=== PATIENT | male | born 1950 | race Caucasian/White ===

== ENCOUNTER 2017-07-24 12:41 | Inpatient (IN) | payer OTHER ==
[2017-07-24 13:01] VITALS: BMI 26.5
--- NOTE | 2017-07-24 13:10 | PDOC ---
History of Present Illness - General History Source: Patient Exam Limitations: No Limitations - History of Present Illness Initial Comments: CHIEF COMPLAINT: 67 y/o afebrile male with PMH HTN and alcohol abuse sent over from [facility] because of high blood pressure. HISTORY OF PRESENT ILLNESS: The patient states he went to [facility] for alcohol detox and when they took his BP they sent him here. He states he does have a headache but took his BP meds this morning. He states he last drank about 1 quart of donny conteh last night. He states he's starting to feel like he is going to have withdrawal symptoms and does have some low back pain. He denies neck pain, changes in vision/hearing, n/v/d, CP, SOB, abd pain. Vital signs on arrival are notable for BP of 199/110. REVIEW OF SYSTEMS: GENERAL/CONSTITUTIONAL: No fever/chills. No weakness. No weight change. HEAD, EYES, EARS, NOSE AND THROAT: No change in vision. No ear pain or discharge. No sore throat. CARDIOVASCULAR: No chest pain or shortness of breath. RESPIRATORY: No cough, wheezing, or hemoptysis. GASTROINTESTINAL: No abd pain, nausea, vomiting, diarrhea. GENITOURINARY: No dysuria, frequency, or change in urination. MUSCULOSKELETAL: No joint or muscle swelling or pain. No neck pain. +low back pain. SKIN: No rash or easy bruising. NEUROLOGIC: +headache. No vertigo, loss of consciousness, or loss of sensation. PHYSICAL EXAM: GENERAL: The patient is awake, alert, and fully oriented, in no acute distress. He is well appearing, UEs shaking slightly. HEAD: Normal with no signs of trauma. ENT: Pupils equal, round and reactive to light, extraocular movements intact, sclera anicteric, conjunctiva clear. Neck supple. LUNGS: Clear to auscultation bilaterally. Normal excursion. No respiratory distress or use of accessory muscles. CV: RRR, S1/S2, no MRG. Cap refill < 2 sec. ABDOMEN: Soft, non-distended, non-tender even to deep palpation, no hepatomegaly or splenomegaly, no masses. EXTREMITIES: Normal range of motion, no edema. NEUROLOGICAL: Normal speech, normal gait. CN II-XII grossly intact. PSYCH: Normal mood, normal affect. SKIN: Warm, dry, normal turgor, no rashes or lesions noted. <Citlali Joiner - Last Filed: 07/24/17 17:13> <Parhta Pride - Last Filed: 07/24/17 23:35> - General Chief Complaint: Blood Pressure Problem Stated Complaint: HTN Time Seen by Provider: 07/24/17 13:01 Past History - Past Medical History GI Disorders: Yes (GERD) HTN: Yes Other medical history: Diaz's esophagus - Psycho/Social/Smoking Cessation Hx Suicidal Ideation: No Smoking History: Former smoker Have you smoked in the past 12 months: No If you are a former smoker, when did you quit?: 5 years ago Information on smoking cessation initiated: No <Citlali Joiner - Last Filed: 07/24/17 17:13> <Partha Pride - Last Filed: 07/24/17 23:35> - Past Medical History Allergies/Adverse Reactions: Allergies Allergy/AdvReac Type Severity Reaction Status Date / Time No Known Allergies Allergy Verified 07/24/17 12:50 Home Medications: Ambulatory Orders Valsartan 0 mg PO DAILY 07/24/17 *Physical Exam - Vital Signs Last Vital Signs Temp Pulse Resp BP Pulse Ox 97.9 F 82 18 199/110 96 07/24/17 12:52 07/24/17 12:52 07/24/17 12:52 07/24/17 12:52 07/24/17 12:52 <Citlali Joiner - Last Filed: 07/24/17 17:13> - Vital Signs Last Vital Signs Temp Pulse Resp BP Pulse Ox 98.0 F 61 18 176/114 96 07/24/17 17:50 07/24/17 21:13 07/24/17 21:13 07/24/17 22:42 07/24/17 21:13 <Partha Pride - Last Filed: 07/24/17 23:35> ED Treatment Course - LABORATORY CBC & Chemistry Diagram: 07/24/17 13:39 07/24/17 13:39 <Citlali Joiner - Last Filed: 07/24/17 17:13> - LABORATORY CBC & Chemistry Diagram: 07/24/17 13:39 07/24/17 13:39 - ADDITIONAL ORDERS Additional order review: Laboratory Results 07/24/17 13:39 Sodium 141 Potassium 3.4 L Chloride 102 Carbon Dioxide 32 Anion Gap 7 L BUN 10 Creatinine 0.9 Creat Clearance w eGFR > 60 Random Glucose 121 H Calcium 9.9 Total Bilirubin 0.8 AST 81 H ALT 61 Alkaline Phosphatase 57 Creatine Kinase 125 Troponin I < 0.02 Total Protein 7.3 Albumin 4.1 07/24/17 13:39 RBC 4.25 MCV 102.5 H MCHC 34.5 RDW 12.7 MPV 7.2 L Neutrophils % 80.0 Lymphocytes % 10.4 Monocytes % 8.4 Eosinophils % 0.8 Basophils % 0.4 - RADIOLOGY Radiology Studies Ordered: Category Date Time Status CHEST PA & LAT [RAD] Stat Radiology 07/24/17 22:50 Ordered - Medications Given in the ED: ED Medications Discontinued Medications Generic Name Dose Route Start Last Admin Trade Name Freq PRN Reason Stop Dose Admin Acetaminophen 1,000 mg 07/24/17 13:17 07/24/17 13:26 Tylenol - PO 07/24/17 13:18 1,000 mg ONCE ONE Administration Chlordiazepoxide HCl 5 mg 07/24/17 22:40 07/24/17 22:46 Librium - PO 07/24/17 22:41 5 mg ONCE ONE Administration Clonidine 0.1 mg 07/24/17 18:56 07/24/17 19:15 Catapres - PO 07/24/17 18:57 0.1 mg ONCE ONE Administration Enalaprilat 2.5 mg 07/24/17 20:16 07/24/17 20:26 Vasotec Injection - IVPB 07/24/17 20:17 2.5 mg ONCE ONE Administration Labetalol HCl 10 mg 07/24/17 21:13 07/24/17 21:52 Normodyne Injection - IVPUSH 07/24/17 21:14 10 mg ONCE ONE Administration Lorazepam 1 mg 07/24/17 13:17 07/24/17 13:26 Ativan - PO 07/24/17 13:18 1 mg ONCE ONE Administration Lorazepam 1 mg 07/24/17 17:49 07/24/17 17:58 Ativan - PO 07/24/17 17:50 1 mg ONCE ONE Administration Valsartan 40 mg 07/24/17 17:49 07/24/17 17:58 Diovan - PO 07/24/17 17:50 40 mg ONCE ONE Administration <Partha Pride - Last Filed: 07/24/17 23:35> Medical Decision Making - Medical Decision Making A/P: 67 y/o male with HTN, headache and possible start of alcohol withdrawals. Plan is as follows: 1. EKG 2. Labs 3. Pain meds 4. Ativan 5. Head CT The patient only wants tylenol for pain. Head CT IMPRESSION: No gross acute intracranial pathology is identified. The patient's blood pressure has come down and he admits his headache has improved after tylenol. Suspect elevated BP was secondary to withdrawal. Will discharged back to [facility] for detox. Pt instructed to continue taking his BP meds as prescribed and return to the ER with any worsening or concerning symptoms. The patient verbalizes understanding of all instructions, has no further questions and is awaiting discharge. <Citlali Joiner - Last Filed: 07/24/17 17:13> *DC/Admit/Observation/Transfer <Citlali Joiner - Last Filed: 07/24/17 17:13> - Discharge Dispostion Admit: Yes <Partha Pride - Last Filed: 07/24/17 23:35> Diagnosis at time of Disposition: Alcohol abuse High blood pressure Qualifiers: Hypertension type: unspecified Qualified Code(s): I10 - Essential (primary) hypertension Headache Qualifiers: Headache type: unspecified Headache chronicity pattern: unspecified pattern Intractability: not intractable Qualified Code(s): R51 - Headache - Discharge Dispostion Condition at time of disposition: Fair - Referrals Referrals: STAFF,NOT ON [Primary Care Provider] - - Patient Instructions Additional Instructions: Discharge Instructions: -The Cat Scan of your head was negative -Your blood pressure may have been elevated because of alcohol withdrawal -Please continue taking your blood pressure medication as prescribed -Return to the ER with any worsening or concerning symptoms.
[2017-07-24] MEDS ORDERED: LORazepam 1 MG TABLET PO ONE ×2 (13:17→17:49)
[2017-07-24] MEDS ORDERED: ACETAMINOPHEN 500 MG TABLET (FP) PO ONE (13:17)
[2017-07-24] MEDS ORDERED: ACETAMINOPHEN 325 MG TABLET (FP) ONE (13:22)
[2017-07-24] MEDS ORDERED: LORazepam 0.5 MG TABLET ONE ×2 (13:22→17:52)
[2017-07-24 14:28] LABS: BASOPHIL 0.4 % (0-2.0); EOSINOPHIL 0.8 % (0-4.5); MCH 35.4 pg (25.7-33.7); MCHC 34.5 g/dl (32.0-35.9); MEAN CELL VOLUME 102.5 fl (80-96); MEAN PLT VOLUME 7.2 fl (7.5-11.1); PLATELET COUNT 192 K/MM3 (134-434); RDW 12.7 % (11.9-15.9); WHITE BLOOD COUNT 7.5 K/mm3 (4.0-10.0)
[2017-07-24 14:53] LABS: ALBUMIN 4.1 g/dl (3.4-5.0); ANION GAP 7 (8-16); BILIRUBIN,TOTAL 0.8 mg/dL (0.2-1.0); CALCIUM 9.9 mg/dL (8.5-10.1); CO2 32 mmol/L (21-32); CPK 125 IU/L (39-308); CREATININE 0.9 mg/dL (0.7-1.3); GLUCOSE,RANDOM 121 mg/dL (74-106); SGOT/AST 81 U/L (15-37); SGPT/ALT 61 U/L (12-78)
[2017-07-24 14:56] LABS: ALK PHOS 57 U/L (45-117); TOT PROT 7.3 g/dl (6.4-8.2); TROPONIN I < 0.02 ng/ml (0.00-0.05)
[2017-07-24] MEDS ORDERED: VALSARTAN 40 MG TABLET (FP) PO ONE (17:49)
[2017-07-24] MEDS ORDERED: VALSARTAN 80 MG TABLET (UD) ONE (17:52)
[2017-07-24] MEDS ORDERED: cloNIDine HCL 0.1 MG TABLET PO ONE ×2 (18:56→23:46)
[2017-07-24] MEDS ORDERED: cloNIDine HCL 0.1 MG TABLET ONE ×2 (19:08→23:51)
[2017-07-24] MEDS ORDERED: ENALAPRILAT DIHYDRATE 2.5 MG/2 ML VIAL IVPB ONE ×2 (20:16→20:18)
[2017-07-24] MEDS ORDERED: LABETALOL HCL 5 MG/1 ML (100MG/20 ML VIAL) IVPUSH ONE (21:13)
[2017-07-24] MEDS ORDERED: LABETALOL HCL 5 MG/1 ML (200MG/40ML VIAL) IVPB ONE (21:44)
[2017-07-24] MEDS ORDERED: chlordiazePOXIDE 5 MG CAPSULE PO ONE (22:40)
[2017-07-24] MEDS ORDERED: chlordiazePOXIDE 5 MG CAPSULE ONE (22:43)
[2017-07-24] MEDS ORDERED: FOLIC ACID INJECTION - 1 MG, THIAMINE HCL 100 MG, MULTIVIT INJECTION ADULT 10 ML in SOD... IVPB ONE (23:34)
[2017-07-24] MEDS ORDERED: POTASSIUM CHLORIDE TABS 20 MEQ TABLET.ER (FP) PO ONE ×2 (23:34→23:51)
[2017-07-25 00:59] LABS: TROPONIN I 0.02 ng/ml (0.00-0.05)
--- NOTE | 2017-07-25 05:52 | HP ---
CHIEF COMPLAINT: Elevated BP PCP: HISTORY OF PRESENT ILLNESS: This is a 67 y/o male with a past medical history of HTN, Chronic Alcohol Abuse. Who arrived from [facility] for elevated BP ( 212/128) . Patient is non- compliant with his meds, secondary to his alcohol abuse. Patient admits last drink, 2 days ago. Patient denies fever, chills, cough, SOB CP, AP, N/V/D, constipation, dysuria. ER course was notable for: (1) BP on arrival 199/110 (2) EKG- SR w/ PVCs, Anterior Ischemia, Prolonged QT (3) Recent Travel: None PAST MEDICAL HISTORY: See HPI PAST SURGICAL HISTORY: Denies Social History: Smoking: Denies Alcohol: 1 pint [place] Estes daily Drugs: Denies Family History: Father: Liver Ca Allergies No Known Allergies Allergy (Verified 07/24/17 12:50) HOME MEDICATIONS: Home Medications Medication Instructions Recorded Valsartan 0 mg PO DAILY 07/24/17 REVIEW OF SYSTEMS CONSTITUTIONAL: Absent: fever, chills, diaphoresis, generalized weakness, malaise, loss of appetite, weight change HEENT: Absent: rhinorrhea, nasal congestion, throat pain, throat swelling, difficulty swallowing, mouth swelling, ear pain, eye pain, visual changes CARDIOVASCULAR: Absent: chest pain, syncope, palpitations, irregular heart rate, lightheadedness , peripheral edema RESPIRATORY: Absent: cough, shortness of breath, dyspnea with exertion, orthopnea, wheezing, stridor, hemoptysis GASTROINTESTINAL: Absent: abdominal pain, abdominal distension, nausea, vomiting, diarrhea, constipation, melena, hematochezia GENITOURINARY: Absent: dysuria, frequency, urgency, hesitancy, hematuria, flank pain, genital pain MUSCULOSKELETAL: Absent: myalgia, arthralgia, joint swelling, back pain, neck pain SKIN: Absent: rash, itching, pallor HEMATOLOGIC/IMMUNOLOGIC: Absent: easy bleeding, easy bruising, lymphadenopathy, frequent infections ENDOCRINE: Absent: unexplained weight gain, unexplained weight loss, heat intolerance, cold intolerance NEUROLOGIC: headache Absent: headache, focal weakness or paresthesias, dizziness, unsteady gait, seizure, mental status changes, bladder or bowel incontinence PSYCHIATRIC: Absent: anxiety, depression, suicidal or homicidal ideation, hallucinations. PHYSICAL EXAMINATION Vital Signs - 24 hr 07/25/17 07/25/17 07/25/17 01:52 03:07 03:22 Temperature 97.8 F 97.8 F Pulse Rate 54 L 54 L Pulse Rate [ 60 Apical] Respiratory 16 20 20 Rate Blood Pressure 161/103 161/103 Blood Pressure 170/90 [Right Arm] O2 Sat by Pulse 96 Oximetry (%) GENERAL: Awake, alert, and fully oriented, in no acute distress. HEAD: Normal with no signs of trauma. EYES: Pupils equal, round and reactive to light, extraocular movements intact, sclera anicteric, conjunctiva clear. No lid lag. EARS, NOSE, THROAT: Ears normal, nares patent, oropharynx clear without exudates. Dry mucous membranes. NECK: Normal range of motion, supple without lymphadenopathy, JVD, or masses. LUNGS: Breath sounds equal, clear to auscultation bilaterally. No wheezes, and no crackles. No accessory muscle use. HEART: Regular rate and rhythm, normal S1 and S2 without murmur, rub or gallop. ABDOMEN: Soft, nontender, not distended, normoactive bowel sounds, no guarding, no rebound, no masses. + hepatomegaly, splenomegaly. MUSCULOSKELETAL: Normal range of motion at all joints. No bony deformities or tenderness. No CVA tenderness. UPPER EXTREMITIES: 2+ pulses, warm, well-perfused. No cyanosis. No clubbing. No peripheral edema. LOWER EXTREMITIES: 2+ pulses, warm, well-perfused. No calf tenderness. No peripheral edema. NEUROLOGICAL: Cranial nerves II-XII intact. Normal speech. Gait not observed. PSYCHIATRIC: Cooperative. Good eye contact. Appropriate mood and affect. SKIN: Warm, dry, normal turgor, no rashes or lesions noted, normal capillary refill. Laboratory Results - last 24 hr 07/25/17 00:15 Creatine Kinase 148 Troponin I 0.02 ASSESSMENT/PLAN: This is a 67 y/o male with a PMHx of HTN, Chronic Alcohol Abuse. Placed in Tele Observation for further evaluation of thier medical condition. Problem List - Problem (1) Hypertensive urgency Assessment/Plan: - Uncontrolled - Continue cardiac monitoring - EKG- SR with PVCs, Anterior Ischemia, prolonged QT - Clonidine, Diovan, Labetolol, Vaseotec given in ED - BP- 190/110~ 160/103 - Monitor CBC, BMP - Chest Xray-pending Code(s): I16.0 - HYPERTENSIVE URGENCY (2) Alcohol abuse Assessment/Plan: - Will need Detox Protocol, pt has visible tremors - Given Banana Bag in ED - Appreciate Detox Consult - Fall precautions - Seizure Precautions - Continue Thiamine, Folic Acid, MVI - Monitor DTs - Monitor vitals Code(s): F10.10 - ALCOHOL ABUSE, UNCOMPLICATED (3) DVT prophylaxis Assessment/Plan: - OOB - SCDs Code(s): [id number] - Visit type - Emergency Visit Emergency Visit: Yes ED Registration Date: 07/24/17 Care time: The patient presented to the Emergency Department on the above date and was hospitalized for further evaluation of their emergent condition. - New Patient This patient is new to me today: Yes Date on this admission: 07/25/17 - Critical Care Critical Care patient: No
[2017-07-25] MEDS: chlordiazePOXIDE HCL 25 MG CAPSULE PO SCH ×4 (06:31→22:52)
[2017-07-25 08:10] LABS: BASOPHIL 0.5 % (0-2.0); EOSINOPHIL 3.7 % (0-4.5); MCH 36.2 pg (25.7-33.7); MCHC 35.6 g/dl (32.0-35.9); MEAN CELL VOLUME 101.8 fl (80-96); MEAN PLT VOLUME 7.7 fl (7.5-11.1); NEUTROPHILS 67.4 % (42.8-82.8); PLATELET COUNT 156 K/MM3 (134-434); RDW 12.7 % (11.9-15.9); WHITE BLOOD COUNT 6.1 K/mm3 (4.0-10.0)
[2017-07-25 08:39] LABS: ANION GAP 8 (8-16); CALCIUM 8.8 mg/dL (8.5-10.1); CO2 32 mmol/L (21-32); CREATININE 0.9 mg/dL (0.7-1.3); GLUCOSE,RANDOM 127 mg/dL (74-106); MAGNESIUM 1.8 mg/dL (1.8-2.4); PHOSPHOROUS 3.2 mg/dL (2.5-4.9)
[2017-07-25] MEDS ORDERED: PNEUMOC 13-VAL CONJ-DIP CRM/PF 0.5 ML DISP.SYRIN IM ONE (09:00)
[2017-07-25 10:02] LABS: TROPONIN I 0.02 ng/ml (0.00-0.05)
--- NOTE | 2017-07-25 10:03 | CONSULT ---
Consult Detox [facility] Reason for Current Admission/Consult: Alcohol detox Referred by:: Amanda Jones NP - History History of Present Illness: 67 y/o man with a long hx. of alcoholism was sent from [facility] to [facility] because of Hypertensive crisis. - History Source History Provided By: Patient, Medical Record - Alcohol/Substance Use Hx Alcohol Use: Yes Assessment Plan - Diagnosis (1) Hypertensive urgency Status: Acute (2) Alcohol dependence with uncomplicated withdrawal Status: Acute - Medication Detox Regimen/Protocol: Librium
[2017-07-25] MEDS: THIAMINE HCL 100 MG TABLET (FP) PO SCH (10:11)
[2017-07-25] MEDS: FOLIC ACID 1 MG TABLET (FP) PO SCH (10:11)
[2017-07-25] MEDS: VALSARTAN 40 MG TABLET (FP) PO SCH (10:11)
[2017-07-25] MEDS: MULTIVITAMINS (DAILY MVI) TABLET (FP) PO SCH (10:11)
[2017-07-25] MEDS: POTASSIUM CHLORIDE TABS 20 MEQ TABLET.ER (FP) PO SCH ×2 (10:49→16:01)
--- NOTE | 2017-07-25 10:57 | EKG ---
Test Reason : Blood Pressure : / mmHG Vent. Rate : 083 BPM Atrial Rate : 083 BPM P-R Int : 178 ms QRS Dur : 096 ms QT Int : 430 ms P-R-T Axes : 050 -02 029 degrees QTc Int : 505 ms SINUS RHYTHM WITH OCCASIONAL PREMATURE VENTRICULAR COMPLEXES PROLONGED QT ABNORMAL ECG NO PREVIOUS ECGS AVAILABLE Confirmed by JEFERSON COYLE, MAC ([id number]) on 07/25/2017 10:56:52 AM Referred By: Confirmed By:MAC GOVEA MD
--- NOTE | 2017-07-25 12:05 | PN ---
Physical Exam: SUBJECTIVE: Patient seen and examined at bedside. States feels shaky and thirsty. Was sober for 25 years, started drinking again 3 years ago. OBJECTIVE: Vital Signs Period Temp Pulse Resp BP Sys/Choudhary Pulse Ox Last 24 Hr 97.8 F-98.7 F 48-65 16-20 135-170/74-103 96-96 GENERAL/NEURO: A&Ox3; bilateral hand tremors, mild asterixis HEAD: Normal with no signs of trauma. EYES: PERRL, extraocular movements intact, sclera injected appearance, conjunctiva clear. No ptosis. LUNGS: Breath sounds equal, clear to auscultation bilaterally, no wheezes, no crackles, no accessory muscle use. HEART: Regular rate and rhythm, S1, S2 without murmur, rub or gallop. ABDOMEN: Soft, distended, tympanic; normoactive bowel sounds, no guarding, no rebound EXTREMITIES: 2+ pulses, warm, well-perfused, no edema. NEUROLOGICAL: Cranial nerves II through XII grossly intact. Normal speech, gait not observed. Laboratory Results - last 24 hr 07/25/17 07/25/17 07/25/17 00:15 05:50 05:50 WBC 6.1 RBC 3.63 L Hgb 13.1 D Hct 37.0 D MCV 101.8 H MCH 36.2 H MCHC 35.6 RDW 12.7 Plt Count 156 MPV 7.7 Neutrophils % 67.4 Lymphocytes % 17.6 D Monocytes % 10.8 H Eosinophils % 3.7 D Basophils % 0.5 Sodium 140 Potassium 3.3 L Chloride 100 Carbon Dioxide 32 Anion Gap 8 BUN 10 Creatinine 0.9 Random Glucose 127 H Calcium 8.8 Phosphorus 3.2 Magnesium 1.8 Creatine Kinase 148 Troponin I 0.02 07/25/17 09:20 WBC RBC Hgb Hct MCV MCH MCHC RDW Plt Count MPV Neutrophils % Lymphocytes % Monocytes % Eosinophils % Basophils % Sodium Potassium Chloride Carbon Dioxide Anion Gap BUN Creatinine Random Glucose Calcium Phosphorus Magnesium Creatine Kinase 116 Troponin I 0.02 Active Medications Generic Name Dose Route Start Last Admin Trade Name Freq PRN Reason Stop Dose Admin Chlordiazepoxide HCl 25 mg 07/25/17 04:12 Librium - PO 07/28/17 04:11 Q4H PRN WITHDRAWAL(CONT SUBST) Chlordiazepoxide HCl 50 mg 07/25/17 05:00 07/25/17 10:49 Librium - PO 07/25/17 23:01 50 mg [id number] DEVIN Administration Chlordiazepoxide HCl 25 mg 07/26/17 05:00 Librium - PO 07/26/17 23:01 [id number] DEVIN Chlordiazepoxide HCl 15 mg 07/27/17 05:00 Librium - PO 07/27/17 23:01 [id number] DEVIN Folic Acid 1 mg 07/25/17 10:00 07/25/17 10:11 Folic Acid - PO 1 mg DAILY DEVIN Administration Multivitamins/Minerals/Vitamin C 1 tab 07/25/17 10:00 07/25/17 10:11 Tab-A-Vit - PO 1 tab DAILY DEVIN Administration Potassium Chloride 40 meq 07/25/17 10:15 07/25/17 10:49 K-Dur - PO 07/25/17 16:16 40 meq Q6H DEVIN Administration Thiamine HCl 100 mg 07/25/17 10:00 07/25/17 10:11 Vitamin B1 - PO 100 mg DAILY DEVIN Administration Valsartan 40 mg 07/25/17 10:00 07/25/17 10:11 Diovan - PO 40 mg DAILY DEVIN Administration ASSESSMENT/PLAN 67 year-old male with a PMH of HTN and ETOH abuse. Admitted for hypertensive urgency. Hypertensive urgency --on presentation to [facility], BP reportedly 212/128, was 199/110 in ED --BP now 135/74 --continus valsartan, renal function stable Acute alcohol withdrawal --tremulous, asterixis --continue librium taper, thiamine, folic acid Hypokalemia --repleted F/E/N Fluids: D51/2@83mL/hr Electrolytes: replete as indicated Nutrition: low sodium DVT prophylaxis: subq heparin, oob, ambulation Dispo: continues to require inpatient care. If normotensive for 24 hours, can discharge to [facility] to continue detox. Full code. Visit type - Emergency Visit Emergency Visit: Yes ED Registration Date: 07/24/17 Care time: The patient presented to the Emergency Department on the above date and was hospitalized for further evaluation of their emergent condition. - New Patient This patient is new to me today: Yes Date on this admission: 07/25/17 - Critical Care Critical Care patient: No
[2017-07-25] MEDS ORDERED: DEXTROSE 5%-0.45% SALINE 1,000 ML IV SCH (12:15)
[2017-07-25] MEDS: HEPARIN NA (PORCINE) 5,000 UNITS/ML 1ML VIAL SQ SCH ×2 (14:31→22:45)
[2017-07-25] MEDS: LIDOCAINE 5% TOPICAL PATCH TP SCH (19:44)
[2017-07-25] MEDS: chlordiazePOXIDE HCL 25 MG CAPSULE PO PRN (19:45)
[2017-07-25] MEDS: LIDOCAINE PATCH REMOVAL MC SCH (21:56)
[2017-07-26] MEDS: chlordiazePOXIDE HCL 25 MG CAPSULE PO SCH ×4 (05:26→22:32)
[2017-07-26] MEDS: HEPARIN NA (PORCINE) 5,000 UNITS/ML 1ML VIAL SQ SCH ×3 (05:27→22:39)
[2017-07-26 07:52] LABS: BASOPHIL 0.4 % (0-2.0); EOSINOPHIL 4.3 % (0-4.5); MCHC 35.3 g/dl (32.0-35.9); MEAN CELL VOLUME 101.8 fl (80-96); MEAN PLT VOLUME 7.9 fl (7.5-11.1); NEUTROPHILS 67.2 % (42.8-82.8); PLATELET COUNT 142 K/MM3 (134-434); RDW 12.7 % (11.9-15.9)
[2017-07-26 08:22] LABS: ALBUMIN 3.4 g/dl (3.4-5.0); ALK PHOS 47 U/L (45-117); ANION GAP 8 (8-16); BILIRUBIN,TOTAL 0.8 mg/dL (0.2-1.0); CALCIUM 8.1 mg/dL (8.5-10.1); CO2 31 mmol/L (21-32); GLUCOSE,RANDOM 126 mg/dL (74-106); MAGNESIUM 1.6 mg/dL (1.8-2.4); SGOT/AST 39 U/L (15-37); SGPT/ALT 41 U/L (12-78)
[2017-07-26] MEDS: FOLIC ACID 1 MG TABLET (FP) PO SCH (09:35)
[2017-07-26] MEDS: MULTIVITAMINS (DAILY MVI) TABLET (FP) PO SCH (09:35)
[2017-07-26] MEDS: VALSARTAN 40 MG TABLET (FP) PO SCH (09:35)
[2017-07-26] MEDS: THIAMINE HCL 100 MG TABLET (FP) PO SCH (09:35)
[2017-07-26] MEDS: LIDOCAINE 5% TOPICAL PATCH TP SCH (09:39)
[2017-07-26] MEDS ORDERED: MAGNESIUM SULF 50% (8.12 MEQ/2 ML-1 GM VIAL) IVPB ONE (11:44)
[2017-07-26] MEDS ORDERED: POTASSIUM CHLORIDE TABS 20 MEQ TABLET.ER (FP) PO SCH (11:45)
[2017-07-26] MEDS: POTASSIUM CHLORIDE TABS 20 MEQ TABLET.ER (FP) PO SCH ×3 (13:40→22:32)
[2017-07-26] MEDS ORDERED: MAGNESIUM OXIDE 400 MG TABLET (FP) PO ONE (13:40)
[2017-07-26] MEDS: chlordiazePOXIDE HCL 25 MG CAPSULE PO PRN (13:44)
[2017-07-26] MEDS ORDERED: hydrALAZINE HCL 10 MG TABLET PO SCH (14:00)
--- NOTE | 2017-07-26 14:16 | PN ---
Physical Exam: SUBJECTIVE: Patient seen and examined at bedside. States he legs feels shaky and he feels anxious. OBJECTIVE: Vital Signs Period Temp Pulse Resp BP Sys/Choudhary Pulse Ox Last 24 Hr 98.1 F-99.3 F 59-63 18-20 132-171/73-103 96-97 GENERAL/NEURO: A&Ox3; mild bilateral hand tremors, mild asterixis HEAD: Normal with no signs of trauma. EYES: PERRL, extraocular movements intact, sclera injected appearance, conjunctiva clear. No ptosis. LUNGS: Breath sounds equal, clear to auscultation bilaterally, no wheezes, no crackles, no accessory muscle use. HEART: Regular rate and rhythm, S1, S2 without murmur, rub or gallop. ABDOMEN: Soft, distended, tympanic; normoactive bowel sounds, no guarding, no rebound EXTREMITIES: 2+ pulses, warm, well-perfused, no edema. NEUROLOGICAL: Cranial nerves II through XII grossly intact. Normal speech, gait not observed. Laboratory Results - last 24 hr 07/26/17 07/26/17 05:45 05:45 WBC 6.0 RBC 3.67 L Hgb 13.2 Hct 37.3 MCV 101.8 H MCH 36.0 H MCHC 35.3 RDW 12.7 Plt Count 142 MPV 7.9 Neutrophils % 67.2 Lymphocytes % 17.1 Monocytes % 11.0 H Eosinophils % 4.3 Basophils % 0.4 Sodium 139 Potassium 3.0 L Chloride 100 Carbon Dioxide 31 Anion Gap 8 BUN 9 Creatinine 1.0 Creat Clearance w eGFR > 60 Random Glucose 126 H Calcium 8.1 L Magnesium 1.6 L Total Bilirubin 0.8 AST 39 H D ALT 41 D Alkaline Phosphatase 47 Total Protein 6.0 L Albumin 3.4 Active Medications Generic Name Dose Route Start Last Admin Trade Name Freq PRN Reason Stop Dose Admin Chlordiazepoxide HCl 25 mg 07/25/17 04:12 07/26/17 13:44 Librium - PO 07/28/17 04:11 25 mg Q4H PRN Administration WITHDRAWAL(CONT SUBST) Chlordiazepoxide HCl 25 mg 07/26/17 05:00 07/26/17 12:25 Librium - PO 07/26/17 23:01 25 mg [id number] DEVIN Administration Chlordiazepoxide HCl 15 mg 07/27/17 05:00 Librium - PO 07/27/17 23:01 [id number] DEVIN Folic Acid 1 mg 07/25/17 10:00 07/26/17 09:35 Folic Acid - PO 1 mg DAILY DEVIN Administration Heparin Sodium (Porcine) 5,000 unit 07/25/17 14:00 07/26/17 13:41 Heparin - SQ 5,000 unit TID DEVIN Administration Hydralazine HCl 10 mg 07/26/17 14:00 07/26/17 13:40 Apresoline - PO 10 mg TID DEVIN Administration Lidocaine 1 patch 07/25/17 19:00 07/26/17 09:39 Lidoderm Patch - TP 1 patch DAILY DEVIN Administration Magnesium Oxide 800 mg 07/26/17 13:40 Mag-Ox - PO 07/26/17 13:41 ONCE ONE Miscellaneous 1 each 07/25/17 22:00 07/25/17 21:56 Lidoderm Patch Removal MC Not Given DAILY@2200 [facility] Multivitamins/Minerals/Vitamin C 1 tab 07/25/17 10:00 07/26/17 09:35 Tab-A-Vit - PO 1 tab DAILY DEVIN Administration Potassium Chloride 40 meq 07/26/17 11:45 07/26/17 13:40 K-Dur - PO 07/26/17 23:46 40 meq Q6H DEVIN Administration Thiamine HCl 100 mg 07/25/17 10:00 07/26/17 09:35 Vitamin B1 - PO 100 mg DAILY DEVIN Administration Valsartan 40 mg 07/25/17 10:00 07/26/17 09:35 Diovan - PO 40 mg DAILY DEVIN Administration ASSESSMENT/PLAN 67 year-old male with a PMH of HTN and ETOH abuse. Admitted for hypertensive urgency. Sees PCP for BP meds. Cannot recall ever having echo. Last stress "years ago." Hypertensive urgency Bradycardia --on presentation to [facility], BP reportedly 212/128, was 199/110 in ED --BP still elevated 171/100, bradycardic to 48 --add hydralazine to valsartan --echo done, pending read --lipid profile pending Acute alcohol withdrawal --tremulous, anxious --give PRN dose librium --continue librium taper, thiamine, folic acid Hypokalemia --repleted Hypomagnesemia --repleted F/E/N Fluids: lost IV access and patient refusing reinsertion; will monitor PO intake Electrolytes: replete as indicated Nutrition: low sodium DVT prophylaxis: subq heparin, oob, ambulation Dispo: continues to require inpatient care. Full code. Visit type - Emergency Visit Emergency Visit: Yes ED Registration Date: 07/25/17 Care time: The patient presented to the Emergency Department on the above date and was hospitalized for further evaluation of their emergent condition. - New Patient This patient is new to me today: No - Critical Care Critical Care patient: No
[2017-07-26] MEDS ORDERED: amLODIPine BESYLATE 5 MG TABLET (FP) PO ONE (15:45)
--- NOTE | 2017-07-26 15:45 | CON.CARD ---
Cardiology Consult (text) - Consultation Consultation Note: CC: hypertensive urgency 67 yo with h/o HTN, Chronic Alcohol Abuse, GERD who presents with hypertensive urgency noted when he arrived at [facility] for detox. bp 212/128 per ambulance record. given clonidine, IV labetolol, IV enalapril, PO diovan in ER. patient has been on long standing dose of valsartan 80 mg/day. Denies prior episode of htn urgency. denies prior need for cardiac evaluation. denies recent pain, trauma, nsaid use. denies non-adherence to medications, although per report may not have been taking his meds. + frequent falls when drinking, but denies recent trauma to head. head ct here negative for acute pathology. Patient denies fever, chills, sweats, cough, AP, N/V/D, constipation, congestion, rash. pmhx/pshx: per hpi social hx; 1 pint [place] daily, former smoker. family hx: Liver Ca ros: per hpi Ambulatory Orders Valsartan 80 mg PO DAILY 07/24/17 Current Medications Chlordiazepoxide HCl (Librium -) 25 mg PO Q4H PRN PRN Reason: WITHDRAWAL(CONT SUBST) Stop: 07/28/17 04:11 Last Admin: 07/26/17 13:44 Dose: 25 mg Chlordiazepoxide HCl (Librium -) 25 mg PO [id number] [facility] Stop: 07/26/17 23:01 Last Admin: 07/26/17 12:25 Dose: 25 mg Chlordiazepoxide HCl (Librium -) 15 mg PO [id number] [facility] Stop: 07/27/17 23:01 Folic Acid (Folic Acid -) 1 mg PO DAILY [facility] Last Admin: 07/26/17 09:35 Dose: 1 mg Heparin Sodium (Porcine) (Heparin -) 5,000 unit SQ TID [facility] Last Admin: 07/26/17 13:41 Dose: 5,000 unit Hydralazine HCl (Apresoline -) 10 mg PO TID [facility] Last Admin: 07/26/17 13:40 Dose: 10 mg Lidocaine (Lidoderm Patch -) 1 patch TP DAILY [facility] Last Admin: 07/26/17 09:39 Dose: 1 patch Miscellaneous (Lidoderm Patch Removal) 1 each MC DAILY@2200 [facility] Last Admin: 07/25/17 21:56 Dose: Not Given Multivitamins/Minerals/Vitamin C (Tab-A-Vit -) 1 tab PO DAILY [facility] Last Admin: 07/26/17 09:35 Dose: 1 tab Potassium Chloride (K-Dur -) 40 meq PO Q6H [facility] Stop: 07/26/17 23:46 Last Admin: 07/26/17 13:40 Dose: 40 meq Thiamine HCl (Vitamin B1 -) 100 mg PO DAILY [facility] Last Admin: 07/26/17 09:35 Dose: 100 mg Valsartan (Diovan -) 40 mg PO DAILY [facility] Last Admin: 07/26/17 09:35 Dose: 40 mg Vital Signs - 24 hr 07/25/17 07/25/17 07/25/17 17:00 20:31 21:00 Temperature 98.4 F 99.3 F Pulse Rate 59 L 61 Respiratory 20 20 Rate Blood Pressure 132/99 150/73 O2 Sat by Pulse 96 Oximetry (%) 07/26/17 07/26/17 07/26/17 01:00 05:34 09:00 Temperature 98.7 F 99.1 F 98.1 F Pulse Rate 63 63 60 Respiratory 18 20 18 Rate Blood Pressure 142/76 168/103 171/100 O2 Sat by Pulse 97 Oximetry (%) 07/26/17 14:23 Temperature 99.4 F Pulse Rate 68 Respiratory 18 Rate Blood Pressure 167/93 O2 Sat by Pulse Oximetry (%) Intake & Output 07/24/17 07/25/17 07/26/17 07/27/17 07:59 07:59 07:59 07:59 Intake Total 1776 Output Total 300 Balance 1476 Weight 185 lb nad, calm. lying flat in bed jvd flat, neck supple ctab, nl effort rrr nl s1, s2 no mrg + bs soft nt nd ext without e/c/c +dp/pt no carotid bruits aaox3 no jaundice, diaphoresis. CBC, BMP 07/26/17 05:45 07/26/17 05:45 Laboratory Tests 07/24/17 07/25/17 07/25/17 13:39 00:15 09:20 Magnesium Total Bilirubin AST ALT Alkaline Phosphatase Troponin I < 0.02 0.02 0.02 07/26/17 05:45 Magnesium 1.6 L Total Bilirubin 0.8 AST 39 H D ALT 41 D Alkaline Phosphatase 47 Troponin I tele: sr/sb (40's overnight) with occasional pvc's. EKG: sr with pvc's. diffuse non-specific t wave abnormalities. echo 07/2017: nl lv. rv. + tr rvsp 30-40. head ct: no acute pathology 67 yo with h/o HTN, Chronic Alcohol Abuse, GERD who presents with hypertensive urgency noted when he arrived at [facility] for detox. HTN urgency - no significant structural abnormalities on echo. CE's neg x 3. EKG without acute ischemic changes. No anginal symptoms. - Still with suboptimal bp control. Reluctant to uptitrate acei in patient with etoh abuse and electrolyte abnormalities. Norvasc will likely be better for outpatient regimen. Will give first dose now. Would change hydralazine from tid to bid dosing to optimize adherence as outpatient. Ekg ab/sinus bradycardia/qtc prolongation. - aggressive lyte repletion - repeat ekg in am to reassess qt segment, avoid qt prolonging drugs - bradycardia to 40's mainly during overnight hours, ? related to sleep apnea. con't to monitor, avoid av janusz blockade for now. etoh abuse - cessation counseling, mgm't per pmd
[2017-07-26] MEDS: LIDOCAINE PATCH REMOVAL MC SCH (22:35)
[2017-07-27] MEDS: POTASSIUM CHLORIDE TABS 20 MEQ TABLET.ER (FP) PO SCH ×2 (00:15→09:32)
[2017-07-27] MEDS: chlordiazePOXIDE 5 MG CAPSULE PO SCH ×4 (05:29→22:59)
[2017-07-27] MEDS: HEPARIN NA (PORCINE) 5,000 UNITS/ML 1ML VIAL SQ SCH ×3 (05:29→21:21)
[2017-07-27 08:01] LABS: ANION GAP 6 (8-16); CALCIUM 8.5 mg/dL (8.5-10.1); CO2 30 mmol/L (21-32); GLUCOSE,RANDOM 132 mg/dL (74-106); MAGNESIUM 1.9 mg/dL (1.8-2.4)
[2017-07-27 08:14] LABS: THYROID STIMULATING HORMONE 0.97 uIU/ml (0.358-3.74)
[2017-07-27] MEDS: amLODIPine BESYLATE 5 MG TABLET (FP) PO SCH (09:31)
[2017-07-27] MEDS: hydrALAZINE HCL 10 MG TABLET PO SCH ×2 (09:32→21:21)
[2017-07-27] MEDS: LIDOCAINE 5% TOPICAL PATCH TP SCH (09:32)
[2017-07-27] MEDS: FOLIC ACID 1 MG TABLET (FP) PO SCH (09:32)
[2017-07-27] MEDS: MULTIVITAMINS (DAILY MVI) TABLET (FP) PO SCH (09:32)
[2017-07-27] MEDS: THIAMINE HCL 100 MG TABLET (FP) PO SCH (09:32)
--- NOTE | 2017-07-27 09:43 | PN ---
Physical Exam: SUBJECTIVE: Patient seen and examined at the bedside. Denies chest pain, shortness of breath. Reports mild anxiety and in agreement to follow up with [facility] upon discharge. OBJECTIVE: Mild tremors hand tremors on exam, patient appears mildly anxious. Vital Signs Period Temp Pulse Resp BP Sys/Choudhary Pulse Ox Last 24 Hr 98.1 F-99.9 F 63-89 18-18 150-167/78-108 97 GENERAL: The patient is awake, alert, and fully oriented, in no acute distress. HEAD: Normal with no signs of trauma. EYES: PERRL, extraocular movements intact, sclera anicteric, conjunctiva clear. No ptosis. ENT: Ears normal, nares patent, oropharynx clear without exudates, moist mucous membranes. NECK: Trachea midline, full range of motion, supple. LUNGS: Breath sounds equal, no wheezes, no crackles, no accessory muscle use. HEART: SR on cardiac rehabilitation specialist, bradycardic overnight ABDOMEN: Soft, nontender, nondistended, normoactive bowel sounds, no guarding, no rebound, no hepatosplenomegaly, no masses. NEUROLOGICAL: Normal speech, gait not observed. PSYCH: Normal mood, normal affect. SKIN: Warm, dry, normal turgor, no rashes or lesions noted Laboratory Results - last 24 hr 07/27/17 06:00 Sodium 142 Potassium 3.5 Chloride 106 Carbon Dioxide 30 Anion Gap 6 L BUN 10 Creatinine 1.0 Random Glucose 132 H Calcium 8.5 Magnesium 1.9 TSH 0.97 Active Medications Generic Name Dose Route Start Last Admin Trade Name Freq PRN Reason Stop Dose Admin Amlodipine Besylate 10 mg 07/27/17 10:00 07/27/17 09:31 Norvasc - PO 10 mg DAILY [facility] Administration Chlordiazepoxide HCl 25 mg 07/25/17 04:12 07/26/17 13:44 Librium - PO 07/28/17 04:11 25 mg Q4H PRN Administration WITHDRAWAL(CONT SUBST) Chlordiazepoxide HCl 15 mg 07/27/17 05:00 07/27/17 05:29 Librium - PO 07/27/17 23:01 15 mg [id number] [facility] Administration Folic Acid 1 mg 07/25/17 10:00 07/27/17 09:32 Folic Acid - PO 1 mg DAILY [facility] Administration Heparin Sodium (Porcine) 5,000 unit 07/25/17 14:00 07/27/17 05:29 Heparin - SQ 5,000 unit TID [facility] Administration Hydralazine HCl 20 mg 07/27/17 10:00 07/27/17 09:32 Apresoline - PO 20 mg BID [facility] Administration Lidocaine 1 patch 07/25/17 19:00 07/27/17 09:32 Lidoderm Patch - TP 1 patch DAILY [facility] Administration Miscellaneous 1 each 07/25/17 22:00 07/26/17 22:35 Lidoderm Patch Removal MC Not Given DAILY@2200 [facility] Multivitamins/Minerals/Vitamin C 1 tab 07/25/17 10:00 07/27/17 09:32 Tab-A-Vit - PO 1 tab DAILY [facility] Administration Potassium Chloride 20 meq 07/27/17 10:00 07/27/17 09:32 K-Dur - PO 20 meq DAILY [facility] Administration Thiamine HCl 100 mg 07/25/17 10:00 07/27/17 09:32 Vitamin B1 - PO 100 mg DAILY [facility] Administration Valsartan 40 mg 07/25/17 10:00 07/26/17 09:35 Diovan - PO 40 mg DAILY [facility] Administration ASSESSMENT/PLAN: Patient is a 67 year old male with a significant past medical history of hypertension and ETOH abuse who arrived from [facility] for hypertensive urgency. As per ED medical records, patient is non complaint with his home medications and drinks up to 1 pint of vodka per day. Last drink was 2 days period to admission. Cardiology: Hypertensive Urgency - acute A/P: BP remains elevated On Hydralazine HCL 20mg TID, Diovan 40mg daily, Norvasc 10mg daily Echo 07/26/2017 with trace mitral regurg, mild tricuspid regurg Episodes of bradycardia at night, monitor on tele Troponins negative x 3 Psyche: ETOH withdrawal - acute on chronic A/P: on Libiruim protocol CIWA levels improving Rehab on discharge F.E.N. Fluids: tolerating PO Electrolytes: monitor Nutrition: low sodium diet Prophylaxis: DVT: on Heparin GI: deferred Disposition: Requires inpatient hospitalization. Full Code. Visit type - Emergency Visit Emergency Visit: Yes ED Registration Date: 07/25/17 Care time: The patient presented to the Emergency Department on the above date and was hospitalized for further evaluation of their emergent condition. - New Patient This patient is new to me today: Yes Date on this admission: 07/27/17 - Critical Care Critical Care patient: No - Discharge Referral Referred to [facility] Med P.C.: No
[2017-07-27] MEDS ORDERED: amLODIPine BESYLATE 5 MG TABLET (FP) PO SCH (10:00)
[2017-07-27 10:11] LABS: CHOLESTEROL 172 mg/dL (50-200); LDL CHOLESTEROL (ONLY SJRH) 100 mg/dL (5-100)
[2017-07-27 12:45] LABS: CHOLESTEROL 157 mg/dL (50-200); LDL CHOLESTEROL (ONLY SJRH) 87 mg/dL (5-100)
--- NOTE | 2017-07-27 15:18 | PN ---
Progress Note (short form) - Note Progress Note: CC: hypertensive urgency S: no cp, palps, dizziness. Current Medications Amlodipine Besylate (Norvasc -) 10 mg PO DAILY [facility] Last Admin: 07/27/17 09:31 Dose: 10 mg Chlordiazepoxide HCl (Librium -) 25 mg PO Q4H PRN PRN Reason: WITHDRAWAL(CONT SUBST) Stop: 07/28/17 04:11 Last Admin: 07/26/17 13:44 Dose: 25 mg Chlordiazepoxide HCl (Librium -) 15 mg PO [id number] [facility] Stop: 07/27/17 23:01 Last Admin: 07/27/17 11:23 Dose: 15 mg Folic Acid (Folic Acid -) 1 mg PO DAILY [facility] Last Admin: 07/27/17 09:32 Dose: 1 mg Heparin Sodium (Porcine) (Heparin -) 5,000 unit SQ TID [facility] Last Admin: 07/27/17 05:29 Dose: 5,000 unit Hydralazine HCl (Apresoline -) 20 mg PO BID [facility] Last Admin: 07/27/17 09:32 Dose: 20 mg Lidocaine (Lidoderm Patch -) 1 patch TP DAILY [facility] Last Admin: 07/27/17 09:32 Dose: 1 patch Miscellaneous (Lidoderm Patch Removal) 1 each MC DAILY@2200 [facility] Last Admin: 07/26/17 22:35 Dose: Not Given Multivitamins/Minerals/Vitamin C (Tab-A-Vit -) 1 tab PO DAILY [facility] Last Admin: 07/27/17 09:32 Dose: 1 tab Potassium Chloride (K-Dur -) 20 meq PO DAILY [facility] Last Admin: 07/27/17 09:32 Dose: 20 meq Thiamine HCl (Vitamin B1 -) 100 mg PO DAILY [facility] Last Admin: 07/27/17 09:32 Dose: 100 mg Valsartan (Diovan -) 40 mg PO DAILY [facility] Last Admin: 07/26/17 09:35 Dose: 40 mg Vital Signs - 24 hr 07/26/17 07/26/17 07/26/17 16:22 20:35 21:00 Temperature 98.8 F 99.9 F H Pulse Rate 66 89 Respiratory 18 18 18 Rate Blood Pressure 152/96 150/78 O2 Sat by Pulse 97 Oximetry (%) 07/27/17 07/27/17 07/27/17 01:00 05:00 09:00 Temperature 98.4 F 98.1 F 98.0 F Pulse Rate 67 63 88 Respiratory 18 18 18 Rate Blood Pressure 152/108 152/90 156/100 O2 Sat by Pulse 97 Oximetry (%) 07/27/17 15:07 Temperature 98.0 F Pulse Rate 81 Respiratory 18 Rate Blood Pressure 153/97 O2 Sat by Pulse Oximetry (%) Intake & Output 07/25/17 07/26/17 07/27/17 07/28/17 07:59 07:59 07:59 07:59 Intake Total 1776 570 550 Output Total 300 Balance 1476 570 550 Weight 185 lb nad, calm. lying flat in bed jvd flat, neck supple ctab, nl effort rrr nl s1, s2 no mrg + bs soft nt nd ext without e/c/c +dp/pt no carotid bruits aaox3 no jaundice, diaphoresis. BMP 07/27/17 06:00 Laboratory Tests 07/27/17 06:00 TSH 0.97 tele: sr/sb (50's overnight) with occasional pvc's. EKG: sr with pvc's. diffuse non-specific t wave abnormalities. echo 07/2017: nl lv. rv. + tr rvsp 30-40. head ct: no acute pathology 67 yo with h/o HTN, Chronic Alcohol Abuse, GERD who presents with hypertensive urgency noted when he arrived at [facility] for detox. HTN urgency - no significant structural abnormalities on echo. CE's neg x 3. EKG without acute ischemic changes. No anginal symptoms. - 07/26 Still with suboptimal bp control. Reluctant to uptitrate acei in patient with etoh abuse and electrolyte abnormalities. started norvasc - 07/27: continue norvasc. uptitrate hydralazine, Ekg ab/sinus bradycardia/qtc prolongation. - aggressive lyte repletion - repeat ekg in am to reassess qt segment, avoid qt prolonging drugs - bradycardia to 40's-50's mainly during overnight hours, ? related to sleep apnea. con't to monitor, avoid av janusz blockade for now. etoh abuse - cessation counseling, mgm't per pmd
--- NOTE | 2017-07-27 15:20 | EKG ---
Test Reason : Blood Pressure : / mmHG Vent. Rate : 079 BPM Atrial Rate : 079 BPM P-R Int : 172 ms QRS Dur : 080 ms QT Int : 402 ms P-R-T Axes : 058 -09 028 degrees QTc Int : 460 ms NORMAL SINUS RHYTHM NONSPECIFIC ST ABNORMALITY ABNORMAL ECG WHEN COMPARED WITH ECG OF 24-JUL-2017 12:50, PREMATURE VENTRICULAR COMPLEXES ARE NO LONGER PRESENT T WAVE INVERSION NO LONGER EVIDENT IN ANTERIOR LEADS QT HAS SHORTENED Confirmed by FLORESITA COYLE, DEONDRE ([id number]) on 07/27/2017 3:20:25 PM Referred By: Adrianna JACK Confirmed By:DEONDRE CANAS MD
[2017-07-27] MEDS ORDERED: hydrALAZINE HCL 10 MG TABLET PO ONE (15:21)
[2017-07-27] MEDS: LIDOCAINE PATCH REMOVAL MC SCH (21:24)
[2017-07-28] MEDS: HEPARIN NA (PORCINE) 5,000 UNITS/ML 1ML VIAL SQ SCH ×3 (06:34→21:13)
[2017-07-28 07:49] LABS: BASOPHIL 0.7 % (0-2.0); EOSINOPHIL 4.6 % (0-4.5); MCH 35.9 pg (25.7-33.7); MEAN CELL VOLUME 102.4 fl (80-96); MEAN PLT VOLUME 7.6 fl (7.5-11.1); NEUTROPHILS 64.7 % (42.8-82.8); PLATELET COUNT 164 K/MM3 (134-434); RDW 12.6 % (11.9-15.9); WHITE BLOOD COUNT 6.4 K/mm3 (4.0-10.0)
[2017-07-28 08:21] LABS: ALBUMIN 3.8 g/dl (3.4-5.0); ANION GAP 7 (8-16); CALCIUM 8.5 mg/dL (8.5-10.1); CO2 27 mmol/L (21-32); GLUCOSE,RANDOM 113 mg/dL (74-106); MAGNESIUM 1.9 mg/dL (1.8-2.4); SGOT/AST 34 U/L (15-37); SGPT/ALT 39 U/L (12-78)
[2017-07-28 08:24] LABS: ALK PHOS 51 U/L (45-117); BILIRUBIN,TOTAL 0.7 mg/dL (0.2-1.0); CREATININE 0.9 mg/dL (0.7-1.3); TOT PROT 6.4 g/dl (6.4-8.2)
[2017-07-28] MEDS ORDERED: POTASSIUM CHLORIDE ORAL LIQUID 20 MEQ/15 ML PO ONE (08:31)
[2017-07-28] MEDS: amLODIPine BESYLATE 5 MG TABLET (FP) PO SCH (09:37)
[2017-07-28] MEDS: MULTIVITAMINS (DAILY MVI) TABLET (FP) PO SCH (09:37)
[2017-07-28] MEDS: POTASSIUM CHLORIDE TABS 20 MEQ TABLET.ER (FP) PO SCH ×2 (09:37→21:13)
[2017-07-28] MEDS: FOLIC ACID 1 MG TABLET (FP) PO SCH (09:37)
[2017-07-28] MEDS: VALSARTAN 40 MG TABLET (FP) PO SCH (09:37)
[2017-07-28] MEDS: THIAMINE HCL 100 MG TABLET (FP) PO SCH (09:37)
[2017-07-28] MEDS: hydrALAZINE HCL 10 MG TABLET PO SCH ×2 (09:38→21:13)
[2017-07-28] MEDS: LIDOCAINE 5% TOPICAL PATCH TP SCH (09:38)
[2017-07-28] MEDS ORDERED: hydrALAZINE HCL 10 MG TABLET PO SCH (13:22)
--- NOTE | 2017-07-28 13:22 | PN ---
Progress Note (short form) - Note Progress Note: Progress Note: CC: hypertensive urgency S: BP improved after receiving total of 60 mg of hydralazine yesterday. Note, patient received valsartan dose this morning. Current Medications Amlodipine Besylate (Norvasc -) 10 mg PO DAILY [facility] Last Admin: 07/28/17 09:37 Dose: 10 mg Folic Acid (Folic Acid -) 1 mg PO DAILY [facility] Last Admin: 07/28/17 09:37 Dose: 1 mg Heparin Sodium (Porcine) (Heparin -) 5,000 unit SQ TID [facility] Last Admin: 07/28/17 06:34 Dose: 5,000 unit Hydralazine HCl (Apresoline -) 30 mg PO BID [facility] Lidocaine (Lidoderm Patch -) 1 patch TP DAILY [facility] Last Admin: 07/28/17 09:38 Dose: 1 patch Miscellaneous (Lidoderm Patch Removal) 1 each MC DAILY@2200 [facility] Last Admin: 07/27/17 21:24 Dose: Not Given Multivitamins/Minerals/Vitamin C (Tab-A-Vit -) 1 tab PO DAILY [facility] Last Admin: 07/28/17 09:37 Dose: 1 tab Potassium Chloride (K-Dur -) 20 meq PO DAILY [facility] Last Admin: 07/28/17 09:37 Dose: 20 meq Thiamine HCl (Vitamin B1 -) 100 mg PO DAILY [facility] Last Admin: 07/28/17 09:37 Dose: 100 mg Vital Signs - 24 hr 07/27/17 07/27/17 07/27/17 15:07 18:24 21:00 Temperature 98.0 F 99 F Pulse Rate 81 75 Respiratory 18 20 Rate Blood Pressure 153/97 144/86 O2 Sat by Pulse 97 Oximetry (%) 07/27/17 07/28/17 07/28/17 22:00 02:00 06:00 Temperature 98.3 F 98.1 F 98.2 F Pulse Rate 75 70 72 Respiratory 20 20 18 Rate Blood Pressure 164/95 143/94 132/78 O2 Sat by Pulse Oximetry (%) 07/28/17 07/28/17 09:00 09:04 Temperature 98.9 F Pulse Rate 93 H Respiratory 18 18 Rate Blood Pressure 144/89 O2 Sat by Pulse 97 Oximetry (%) Intake & Output 07/26/17 07/27/17 07/28/17 07/29/17 07:59 07:59 07:59 07:59 Intake Total 8741 048 8979 450 Output Total 300 Balance 0244 342 9648 450 nad, calm. lying flat in bed jvd flat, neck supple ctab, nl effort rrr nl s1, s2 no mrg + bs soft nt nd ext without e/c/c +dp/pt no carotid bruits aaox3 no jaundice, diaphoresis. CBC, BMP 07/28/17 06:30 07/28/17 06:30 tele: sr with rare pvc's. EKG: sr with pvc's. diffuse non-specific t wave abnormalities. echo 07/2017: nl lv. rv. + tr rvsp 30-40. head ct: no acute pathology 67 yo with h/o HTN, Chronic Alcohol Abuse, GERD who presents with hypertensive urgency noted when he arrived at [facility] for detox. HTN urgency - no significant structural abnormalities on echo. CE's neg x 3. EKG without acute ischemic changes. No anginal symptoms. - 07/26 Still with suboptimal bp control. Reluctant to uptitrate acei in patient with etoh abuse and electrolyte abnormalities. started norvasc - 07/27: continue norvasc. uptitrate hydralazine, - 07/28: BP improved overnight after receiving norvasc 10 mg/day and total of hydralazine 60 mg yesterday. Will transition hydralazine to bid dosing today ( 30 mg bid). Since he received valsartan dose this am would start new dosing regimen this evening. Valsartan discontinued. Ekg ab/sinus bradycardia/qtc prolongation. - aggressive lyte repletion - repeat ekg --> improvement in qt. avoid qt prolonging drugs - bradycardia to 40's-50's mainly during overnight hours, ? related to sleep apnea. con't to monitor, avoid av janusz blockade for now. - 07/28: no further mariann episodes. ok to d/c tele etoh abuse - cessation counseling, mgm't per pmd
--- NOTE | 2017-07-28 15:22 | PN ---
Physical Exam: SUBJECTIVE: Patient seen and examined at the bedside. Denies chest pain or shortness of breath. OBJECTIVE: Librium detox completed Monitor BP Vital Signs Period Temp Pulse Resp BP Sys/Choudhary Pulse Ox Last 24 Hr 98.1 F-99 F 70-93 18-20 132-164/78-95 97-97 GENERAL: The patient is awake, alert, and fully oriented, in no acute distress. HEAD: Normal with no signs of trauma. EYES: PERRL, extraocular movements intact, sclera anicteric, conjunctiva clear. No ptosis. ENT: Ears normal, nares patent, oropharynx clear without exudates, moist mucous membranes. NECK: Trachea midline, full range of motion, supple. LUNGS: Breath sounds equal, no wheezes, no crackles, no accessory muscle use. HEART: SR on quality consultant, bradycardic overnight ABDOMEN: Soft, nontender, nondistended, normoactive bowel sounds, no guarding, no rebound, no hepatosplenomegaly, no masses. NEUROLOGICAL: Normal speech, gait not observed. PSYCH: Normal mood, normal affect. SKIN: Warm, dry, normal turgor, no rashes or lesions noted Laboratory Results - last 24 hr 07/28/17 07/28/17 06:30 06:30 WBC 6.4 RBC 4.03 Hgb 14.5 Hct 41.3 MCV 102.4 H MCH 35.9 H MCHC 35.0 RDW 12.6 Plt Count 164 MPV 7.6 Neutrophils % 64.7 Lymphocytes % 19.0 Monocytes % 11.0 H Eosinophils % 4.6 H Basophils % 0.7 Sodium 140 Potassium 3.0 L Chloride 106 Carbon Dioxide 27 Anion Gap 7 L BUN 12 Creatinine 0.9 Creat Clearance w eGFR > 60 Random Glucose 113 H Calcium 8.5 Magnesium 1.9 Total Bilirubin 0.7 AST 34 ALT 39 Alkaline Phosphatase 51 Total Protein 6.4 Albumin 3.8 Active Medications Generic Name Dose Route Start Last Admin Trade Name Freq PRN Reason Stop Dose Admin Amlodipine Besylate 10 mg 07/27/17 10:00 07/28/17 09:37 Norvasc - PO 10 mg DAILY [facility] Administration Folic Acid 1 mg 07/25/17 10:00 07/28/17 09:37 Folic Acid - PO 1 mg DAILY [facility] Administration Heparin Sodium (Porcine) 5,000 unit 07/25/17 14:00 07/28/17 13:43 Heparin - SQ 5,000 unit TID [facility] Administration Hydralazine HCl 30 mg 07/28/17 13:22 Apresoline - PO BID [facility] Lidocaine 1 patch 07/25/17 19:00 07/28/17 09:38 Lidoderm Patch - TP 1 patch DAILY [facility] Administration Miscellaneous 1 each 07/25/17 22:00 07/27/17 21:24 Lidoderm Patch Removal MC Not Given DAILY@2200 [facility] Multivitamins/Minerals/Vitamin C 1 tab 07/25/17 10:00 07/28/17 09:37 Tab-A-Vit - PO 1 tab DAILY [facility] Administration Potassium Chloride 20 meq 07/27/17 10:00 07/28/17 09:37 K-Dur - PO 20 meq DAILY [facility] Administration Thiamine HCl 100 mg 07/25/17 10:00 07/28/17 09:37 Vitamin B1 - PO 100 mg DAILY [facility] Administration ASSESSMENT/PLAN: Patient is a 67 year old male with a significant past medical history of hypertension and ETOH abuse who arrived from [facility] for hypertensive urgency. As per ED medical records, patient is non complaint with his home medications and drinks up to 1 pint of vodka per day. Last drink was 2 days period to admission. Cardiology: Hypertensive Urgency - improved A/P: BP remains elevated On Hydralazine 30mg BID, Norvasc 10mg daily Echo 07/26/2017 with trace mitral regurg, mild tricuspid regurg Episodes of bradycardia at night, monitor on tele Troponins negative x 3 Psyche: ETOH withdrawal - acute on chronic A/P: Completed Libiruim protocol On Folate and Thiamine [facility] rehab on discharge F.E.N. Fluids: tolerating PO Electrolytes: monitor Nutrition: low sodium diet Prophylaxis: DVT: on Heparin GI: deferred Disposition: Once cleared by cardiology, d/c to [facility] for rehab. Full code. Visit type - Emergency Visit Emergency Visit: Yes ED Registration Date: 07/25/17 Care time: The patient presented to the Emergency Department on the above date and was hospitalized for further evaluation of their emergent condition. - New Patient This patient is new to me today: No - Critical Care Critical Care patient: No - Discharge Referral Referred to [facility] Med P.C.: No
[2017-07-28] MEDS ORDERED: diphenhydrAMINE HCL 50 MG CAPSULE PO ONE (19:39)
[2017-07-28] MEDS ORDERED: diphenhydrAMINE HCL 50 MG CAPSULE PO PRN (19:40)
[2017-07-28] MEDS ORDERED: diphenhydrAMINE HCL 25 MG CAPSULE (FP) PO PRN (19:51)
[2017-07-28] MEDS ORDERED: POTASSIUM CHLORIDE TABS 20 MEQ TABLET.ER (FP) PO SCH (22:00)
[2017-07-28] MEDS ORDERED: LIDOCAINE PATCH REMOVAL MC SCH ×2 (22:00)
[2017-07-29] MEDS: HEPARIN NA (PORCINE) 5,000 UNITS/ML 1ML VIAL SQ SCH (06:10)
[2017-07-29 07:07] LABS: BASOPHIL 0.7 % (0-2.0); EOSINOPHIL 4.3 % (0-4.5); MCH 36.3 pg (25.7-33.7); MEAN CELL VOLUME 103.5 fl (80-96); MEAN PLT VOLUME 7.7 fl (7.5-11.1); NEUTROPHILS 61.4 % (42.8-82.8); PLATELET COUNT 173 K/MM3 (134-434); RDW 12.5 % (11.9-15.9); WHITE BLOOD COUNT 6.4 K/mm3 (4.0-10.0)
[2017-07-29 07:27] LABS: ALBUMIN 3.6 g/dl (3.4-5.0); ANION GAP 7 (8-16); BILIRUBIN,TOTAL 0.9 mg/dL (0.2-1.0); CALCIUM 8.3 mg/dL (8.5-10.1); CO2 29 mmol/L (21-32); GLUCOSE,RANDOM 125 mg/dL (74-106); SGOT/AST 34 U/L (15-37); SGPT/ALT 40 U/L (12-78)
[2017-07-29 07:28] LABS: ALK PHOS 51 U/L (45-117); TOT PROT 6.2 g/dl (6.4-8.2)
[2017-07-29] MEDS ORDERED: amLODIPine BESYLATE 5 MG TABLET (FP) PO SCH (10:00)
[2017-07-29] MEDS ORDERED: MULTIVITAMINS (DAILY MVI) TABLET (FP) PO SCH (10:00)
[2017-07-29] MEDS ORDERED: THIAMINE HCL 100 MG TABLET (FP) PO SCH (10:00)
[2017-07-29] MEDS ORDERED: LIDOCAINE 5% TOPICAL PATCH TP SCH (10:00)
[2017-07-29] MEDS ORDERED: FOLIC ACID 1 MG TABLET (FP) PO SCH (10:00)
--- NOTE | 2017-07-29 10:17 | PN ---
Progress Note, Physician Chief Complaint: htn History of Present Illness: denies cp, sob, palpitations, syncope/presync - Current Medication List Current Medications: Active Medications Amlodipine Besylate (Norvasc -) 10 mg PO DAILY [facility] Diphenhydramine HCl (Benadryl -) 50 mg PO HS PRN PRN Reason: INSOMNIA Last Admin: 07/28/17 21:13 Dose: 50 mg Folic Acid (Folic Acid -) 1 mg PO DAILY [facility] Heparin Sodium (Porcine) (Heparin -) 5,000 unit SQ TID [facility] Last Admin: 07/29/17 06:10 Dose: 5,000 unit Hydralazine HCl (Apresoline -) 30 mg PO BID [facility] Last Admin: 07/28/17 21:13 Dose: 30 mg Lidocaine (Lidoderm Patch -) 1 patch TP DAILY [facility] Miscellaneous (Lidoderm Patch Removal) 1 each MC DAILY@2200 [facility] Last Admin: 07/28/17 21:16 Dose: 1 each Multivitamins/Minerals/Vitamin C (Tab-A-Vit -) 1 tab PO DAILY [facility] Potassium Chloride (K-Dur -) 20 meq PO BID [facility] Last Admin: 07/28/17 21:13 Dose: 20 meq Thiamine HCl (Vitamin B1 -) 100 mg PO DAILY [facility] - Objective Vital Signs: Vital Signs Temperature 98.4 F 07/29/17 06:48 Pulse Rate 73 07/29/17 06:48 Respiratory Rate 18 07/29/17 06:48 Blood Pressure 123/93 07/29/17 06:48 O2 Sat by Pulse Oximetry (%) 97 07/28/17 21:00 Constitutional: Yes: Well Nourished, No Distress, Calm Cardiovascular: Yes: Regular Rate and Rhythm, S1, S2. No: Gallop, Murmur Respiratory: Yes: Regular, CTA Bilaterally. No: Accessory Muscle Use, Rales, Wheezes Extremities: No: Cold Edema: No Neurological: Yes: Alert, Oriented Psychiatric: No: Agitated Labs: CBC, BMP 07/29/17 06:10 07/29/17 06:10 Assessment/Plan EKG: sr with pvc's. diffuse non-specific t wave abnormalities. echo 07/2017: nl lv. rv. + tr rvsp 30-40. head ct: no acute pathology 67 yo with h/o HTN, Chronic Alcohol Abuse, GERD who presents with hypertensive urgency noted when he arrived at [facility] for detox. HTN urgency - ? etoh contributing - no significant structural abnormalities on echo. CE's neg x 3. EKG without acute ischemic changes. No anginal symptoms. - 07/26 Still with suboptimal bp control. Reluctant to uptitrate acei in patient with etoh abuse and electrolyte abnormalities. started norvasc - 07/27: continue norvasc. uptitrate hydralazine, - 07/28: BP improved overnight after receiving norvasc 10 mg/day and total of hydralazine 60 mg yesterday. Will transition hydralazine to bid dosing today ( 30 mg bid). Since he received valsartan dose this am would start new dosing regimen this evening. Valsartan discontinued. - 07/29: bp stable, cont current meds Ekg ab/sinus bradycardia/qtc prolongation. - ? initial QT was related to low K/Mag--both repleted/improved - repeat ekg --> improvement in qt. avoid qt prolonging drugs ( diphenyhydramine prn insomnia d/c'd, given conditional risk of QT prolongation if combined with electrolyte abnormalities) - bradycardia to 40's-50's mainly during overnight hours, ? related to sleep apnea. con't to monitor, avoid av janusz blockade for now. - 07/28: no further mariann episodes. ok to d/c tele - should have outpt cardio f/u to discuss genetic testing if QT remains prolonged as outpt--i d/w'd pt today and gave our card, he verbalized understanding of importance of following up this finding for both his, and family member's potential CV health etoh abuse - cessation counselled previously during this admit, mgm't per pmd NO FURTHER INPATIENT CV MGMT REQUIRED
[2017-07-29] MEDS: hydrALAZINE HCL 10 MG TABLET PO SCH (10:51)
[2017-07-29] MEDS: POTASSIUM CHLORIDE TABS 20 MEQ TABLET.ER (FP) PO SCH (10:51)
--- NOTE | 2017-07-29 12:19 | DS ---
Physical Exam: SUBJECTIVE: Patient seen and examined. He denies pain or discomfort. In bathroom shaving. Denies shortness of breath or chest pain. OBJECTIVE: Spoke to Dr. Harrison (covering for Dr. Jean Claude Brizuela) who accepted patient back to [facility] for rehab Vital Signs Period Temp Pulse Resp BP Sys/Choudhary Pulse Ox Last 24 Hr 98.4 F-98.5 F 70-97 16-18 123-136/83-96 97 PHYSICAL EXAM GENERAL: The patient is awake, alert, and fully oriented, in no acute distress. HEAD: Normal with no signs of trauma. EYES: PERRL, extraocular movements intact, sclera anicteric, conjunctiva clear. No ptosis. ENT: Ears normal, nares patent, oropharynx clear without exudates, moist mucous membranes. NECK: Trachea midline, full range of motion, supple. LUNGS: Breath sounds equal, no wheezes, no crackles, no accessory muscle use. HEART: SR on investment counselor, bradycardic overnight ABDOMEN: Soft, nontender, nondistended, normoactive bowel sounds, no guarding, no rebound, no hepatosplenomegaly, no masses. NEUROLOGICAL: Normal speech, gait not observed. PSYCH: Normal mood, normal affect. SKIN: Warm, dry, normal turgor, no rashes or lesions noted LABS Laboratory Results - last 24 hr 07/28/17 07/29/17 07/29/17 15:10 06:10 06:10 WBC 6.4 RBC 3.95 L Hgb 14.3 Hct 40.9 MCV 103.5 H MCH 36.3 H MCHC 35.0 RDW 12.5 Plt Count 173 MPV 7.7 Neutrophils % 61.4 Lymphocytes % 20.0 Monocytes % 13.6 H Eosinophils % 4.3 Basophils % 0.7 Sodium 142 Potassium 3.6 3.9 Chloride 106 Carbon Dioxide 29 Anion Gap 7 L BUN 13 Creatinine 1.0 Creat Clearance w eGFR > 60 Random Glucose 125 H Calcium 8.3 L Magnesium 2.0 Total Bilirubin 0.9 D AST 34 ALT 40 Alkaline Phosphatase 51 Total Protein 6.2 L Albumin 3.6 07/29/17 07:45 WBC RBC Hgb Hct MCV MCH MCHC RDW Plt Count MPV Neutrophils % Lymphocytes % Monocytes % Eosinophils % Basophils % Sodium Potassium Chloride Carbon Dioxide Anion Gap BUN Creatinine Creat Clearance w eGFR Random Glucose Calcium Magnesium Cancelled Total Bilirubin AST ALT Alkaline Phosphatase Total Protein Albumin HOSPITAL COURSE: Date of Admission:07/25/17 Date of Discharge: 07/29/17 ASSESSMENT/PLAN: Patient is a 67 year old male with a significant past medical history of hypertension and ETOH abuse who arrived from [facility] for hypertensive urgency. As per ED medical records, patient is non complaint with his home medications and drinks up to 1 pint of vodka per day. Last drink was 2 days period to admission. Cardiology: Hypertensive Urgency - resolved A/P: BP now stable continue on Hydralazine 30mg BID, Norvasc 10mg daily Echo 07/26/2017 with trace mitral regurg, mild tricuspid regurg Troponins negative x 3 Cleared by cardiology for discharge Psyche: ETOH withdrawal - acute on chronic A/P: Completed Libiruim protocol On Folate and Thiamine [facility] rehab on discharge Spoke with Dr. Harrison who accepted patient Disposition: Discharge today back to [facility]. Full code. Minutes to complete discharge: 45 Discharge Summary Reason For Visit: HYPERTENSIVE CRISIS/HYPERTENSION Current Active Problems Alcohol abuse (Acute) Alcohol dependence with uncomplicated withdrawal (Acute) DVT prophylaxis (Acute) Headache (Acute) High blood pressure (Acute) Hypertensive urgency (Acute) Condition: Stable - Instructions Diet, Activity, Other Instructions: Discharge Instructions: -The Cat Scan of your head was negative -Your blood pressure may have been elevated because of alcohol withdrawal -Please continue taking your blood pressure medication as prescribed -Return to the ER with any worsening or concerning symptoms. New medications: Hydralazine 30mg twice per day Potassium chloride 20mg twice per day Vitamin B1 daily Folic acid daily Amdodipine 10mg daily Referrals: Med Cannon MD [Staff Physician] - 2 Weeks STAFF,NOT ON [Primary Care Provider] - Disposition: I.P. ALCOHOL/SUBS ABUSE REHAB - Home Medications Comprehensive Discharge Medication List: Ambulatory Orders Valsartan 0 mg PO DAILY 07/24/17 This patient is new to me today: No Emergency Visit: Yes ED Registration Date: 07/25/17 Care time: The patient presented to the Emergency Department on the above date and was hospitalized for further evaluation of their emergent condition. Critical Care patient: No - Discharge Referral Referred to [facility] Med P.C.: No
[2017-07-29 14:07] VITALS: BP 113/60; PULSE 92; TEMP 98.9
== END 2017-07-29 13:46 | disposition other institution (70) | DRG 305 ==
LOC: JER 12:41 → JERBED 23:35 → UNDOADMOB 23:56 → J4W 07-25 02:23 → OBSVTOIN 07-25 14:30 → J5S 07-28 19:28
PROVIDERS: ADMIT Internal Medicine; ATTEND Nurse Practitioner Family
PROC: HZ2ZZZZ Detoxification Services for Substance Abuse Treatment (ICD-10-PCS; principal; 2017-07-25)
DX: I16.0 Hypertensive urgency (principal); F10.230 Alcohol dependence with withdrawal, uncomplicated; K21.9 Gastro-esophageal reflux disease without esophagitis; R00.1 Bradycardia, unspecified; E87.6 Hypokalemia; E83.42 Hypomagnesemia
CPT/HCPCS: 36415; 70450-TC; 71020-TC; 80048; 80053; 80061; 83721; 83735; 84100; 84132; 84443; 84484; 85025; 90670; 93005; 93010; 93306-TC; 99284-25; G0378; J1644